=== PATIENT | female | born 1995 | race Hispanic/Latino ===

== ENCOUNTER 2022-04-08 14:17 | Outpatient (CLI) | payer BC | END 2022-04-08 14:18 | disposition home or self-care (01) | LOC: CSHULT 14:17 | PROVIDERS: ATTEND Family Medicine | DX: Z34.02 Encounter for supervision of normal first pregnancy, second trimester (principal); Z3A.28 28 weeks gestation of pregnancy | CPT/HCPCS: 76805 ==

== ENCOUNTER 2022-07-10 11:04 | Inpatient (IN) | payer BC ==
[2022-07-10] MEDS ORDERED: Iopamidol 300 61% 100 ML VIAL FS ONE (11:48)
[2022-07-10 12:14] LABS: #Basophils 0.1 10x3/uL (0.0-0.2); #Eosinphils 0.1 10x3/uL (0.0-0.5); #Monocytes 0.9 10x3/uL (0.0-1.1); #Neutrophils 8.9 10x3/uL (1.5-8.4); %Basophils 0.4 % (0.0-2.0); %Eosinophils 0.8 % (0.0-6.0); %Lymphocytes 16.5 % (18.0-47.0); %Monocytes 7.2 % (0.0-10.0); %Neutrophils 74.4 % (40.0-75.0); Hemoglobin 9.9 g/dL (12.0-15.5); Mean Corpuscular HGB CONC 31.2 g/dL (32.0-36.0); Mean Corpuscular Hemoglobin 27.3 pg (27.0-33.0); Mean Corpuscular Volume 87.3 fl (81.6-98.3); Mean Platelet Volume 9.8 fl (7.4-10.4); Platelet Count 758 10x3/uL (150-450); RBC Distribution Width 15.4 % (11.5-14.5); Red Blood Cell (RBC) Count 3.63 10x6/uL (3.90-5.03); White Blood Cell (WBC) Count 11.9 10x3/uL (3.5-10.5)
[2022-07-10 12:26] LABS: ALT (SGPT) 18 U/L (8-55); AST (SGOT) 19 U/L (5-34); Albumin 3.6 g/dL (3.5-5.0); Alkaline Phosphatase 137 U/L (40-110); Anion Gap 15 mmol/L (10-20); BUN (Urea Nitrogen) 10 mg/dL (7.0-18.7); Bilirubin, Total 0.2 mg/dL (0.2-1.2); Calc. Creatinine Clearance 0 mL/min (70-130); Carbon Dioxide 25 mmol/L (22-29); Chloride 103 mmol/L (98-107); Estimated GFR 123; Globulin 3.8 g/dL (2.4-3.5); Glucose 82 mg/dL (70-105); Potassium 4.2 mmol/L (3.5-5.1); Protein, Total 7.4 g/dL (6.0-8.3); Sodium 139 mmol/L (136-145)
[2022-07-10 12:35] LABS: Platelet Morphology Comment Appears Increased
[2022-07-10 12:36] LABS: Polychromasia SLIGHT = 2-3 cells (100X) (0-2/hpf)
[2022-07-10 13:23] LABS: Bilirubin Neg (Negative); Blood, Urine 50 (Negative); Clarity Clear (Clear); Glucose, Urine (Dipstick) Normal (Negative); Ketone, Urine Negative (Negative); Leukocyte 500 (Negative); Nitrite Negative (Negative); Protein, Urine (Dipstick) Negative (Neg-Trace); Specific Gravity, Urine 1.005 (1.005-1.030); Urobilinogen Normal mg/dL (Less than 2)
[2022-07-10 13:41] LABS: RBC/HPF 0-3 HPF (0-3); Squamous Epithelial 0-3 HPF (0-3)
[2022-07-10 13:43] LABS: Bacteria/HPF Rare-Few HPF (None Seen)
[2022-07-10] MEDS ORDERED: Gentamicin Sulfate 300 MG in Sodium Chloride 0.9% 100 ML IVPB SCH (14:30)
[2022-07-10] MEDS ORDERED: Clindamycin/D5W 900 MG in Premix Bag 1 BAG IVPB SCH (16:00)
[2022-07-10] MEDS ORDERED: VANCOMYCIN 1.75 GM/350 ML BAG 1.75 GM in Premix Bag 1 BAG IVPB SCH (16:30)
[2022-07-10 17:03] VITALS: BMI 25.9
[2022-07-10] MEDS ORDERED: Ondansetron PF 4 MG/2 ML Vial IVP PRN (19:08)
[2022-07-10] MEDS ORDERED: HYDROcodone/Acetaminophen 5/325 mg Tablet PO PRN ×2 (19:08→19:09)
[2022-07-10] MEDS: Ibuprofen 800 MG TAB PO PRN (20:31)
[2022-07-10] MEDS: metroNIDAZOLE 500 MG in Premix Bag 1 BAG IVPB SCH (20:32)
[2022-07-11 03:45] LABS: #Basophils 0.1 10x3/uL (0.0-0.2); #Eosinphils 0.2 10x3/uL (0.0-0.5); #Neutrophils 10.3 10x3/uL (1.5-8.4); %Basophils 0.5 % (0.0-2.0); %Eosinophils 1.3 % (0.0-6.0); %Lymphocytes 11.7 % (18.0-47.0); %Monocytes 7.7 % (0.0-10.0); %Neutrophils 78.1 % (40.0-75.0); Hemoglobin 9.2 g/dL (12.0-15.5); Mean Corpuscular HGB CONC 31.4 g/dL (32.0-36.0); Mean Corpuscular Hemoglobin 27.2 pg (27.0-33.0); Mean Corpuscular Volume 86.7 fl (81.6-98.3); Mean Platelet Volume 9.3 fl (7.4-10.4); Platelet Count 726 10x3/uL (150-450); RBC Distribution Width 15.5 % (11.5-14.5); Red Blood Cell (RBC) Count 3.38 10x6/uL (3.90-5.03); White Blood Cell (WBC) Count 13.2 10x3/uL (3.5-10.5)
[2022-07-11] MEDS: metroNIDAZOLE 500 MG in Premix Bag 1 BAG IVPB SCH ×3 (04:06→20:12)
[2022-07-11] MEDS: Vancomycin HCl 1 GM in Sodium Chloride 0.9% 250 ML 250 ML IVPB SCH ×3 (04:30→17:29)
[2022-07-11 04:47] LABS: Large Platelets SLIGHT; Platelet Morphology Comment Appears Increased
[2022-07-11] MEDS ORDERED: VANCOMYCIN 1.75 GM/350 ML BAG IVPB SCH (06:00)
[2022-07-11] MEDS: Gentamicin Sulfate 300 MG, Admixture Fee 1 EACH in Sodium Chloride 0.9% 100 ML IVPB SCH (16:26)
[2022-07-11 16:37] LABS: Vancomycin, Trough 11.9 ug/mL
[2022-07-12] MEDS: Vancomycin HCl 1 GM in Sodium Chloride 0.9% 250 ML 250 ML IVPB SCH ×3 (01:15→17:04)
[2022-07-12] MEDS: Ibuprofen 800 MG TAB PO PRN (01:22)
[2022-07-12] MEDS: metroNIDAZOLE 500 MG in Premix Bag 1 BAG IVPB SCH ×3 (03:38→23:09)
[2022-07-12] MEDS: Gentamicin Sulfate 300 MG, Admixture Fee 1 EACH in Sodium Chloride 0.9% 100 ML IVPB SCH (15:08)
[2022-07-12 16:38] LABS: Vancomycin, Trough 10.9 ug/mL
[2022-07-12] MEDS ORDERED: Vancomycin HCl 1.25 GM, Admixture Fee 1 EACH in Sodium Chloride 0.9% 250 ML 250 ML IVPB SCH (20:15)
[2022-07-13] MEDS: Vancomycin HCl 1.25 GM, Admixture Fee 1 EACH in Sodium Chloride 0.9% 250 ML 250 ML IVPB SCH ×3 (01:12→17:13)
[2022-07-13] MEDS: metroNIDAZOLE 500 MG in Premix Bag 1 BAG IVPB SCH ×3 (05:13→20:59)
[2022-07-13] MEDS: Gentamicin Sulfate 300 MG, Admixture Fee 1 EACH in Sodium Chloride 0.9% 100 ML IVPB SCH (15:13)
[2022-07-14 00:39] LABS: Vancomycin, Trough 18.2 ug/mL
[2022-07-14] MEDS: Vancomycin HCl 1.25 GM, Admixture Fee 1 EACH in Sodium Chloride 0.9% 250 ML 250 ML IVPB SCH ×2 (01:35→09:25)
[2022-07-14 03:53] LABS: #Basophils 0.1 10x3/uL (0.0-0.2); #Eosinphils 0.2 10x3/uL (0.0-0.5); #Monocytes 0.8 10x3/uL (0.0-1.1); #Neutrophils 4.9 10x3/uL (1.5-8.4); %Basophils 1.1 % (0.0-2.0); %Eosinophils 2.3 % (0.0-6.0); %Lymphocytes 23.6 % (18.0-47.0); %Neutrophils 62.2 % (40.0-75.0); Hemoglobin 9.1 g/dL (12.0-15.5); Mean Corpuscular HGB CONC 30.8 g/dL (32.0-36.0); Mean Corpuscular Hemoglobin 26.5 pg (27.0-33.0); Mean Platelet Volume 9.3 fl (7.4-10.4); Platelet Count 816 10x3/uL (150-450); RBC Distribution Width 15.6 % (11.5-14.5); Red Blood Cell (RBC) Count 3.43 10x6/uL (3.90-5.03); White Blood Cell (WBC) Count 7.9 10x3/uL (3.5-10.5)
[2022-07-14 04:21] LABS: Anisocytosis SLIGHT = 6-15 cells (100X) (0-5/hpf)
[2022-07-14 04:22] LABS: Platelet Morphology Comment Appears Increased
[2022-07-14] MEDS: metroNIDAZOLE 500 MG in Premix Bag 1 BAG IVPB SCH ×2 (04:44→12:10)
[2022-07-14] MEDS: Gentamicin Sulfate 300 MG, Admixture Fee 1 EACH in Sodium Chloride 0.9% 100 ML IVPB SCH (15:13)
[2022-07-14] MEDS: metroNIDAZOLE 500 MG TAB PO SCH (20:30)
[2022-07-14] MEDS: Amoxicillin/Potassium Clav 875 MG TAB PO SCH (20:30)
[2022-07-15] MEDS: metroNIDAZOLE 500 MG TAB PO SCH (03:59)
[2022-07-15 07:21] VITALS: BP 114/75; TEMP 98.4
[2022-07-15] MEDS ORDERED: VANCOMYCIN 1.25 GM/250 ML BAG 1.25 GM in Premix Bag 1 BAG IVPB SCH (09:00)
[2022-07-15] MEDS: Amoxicillin/Potassium Clav 875 MG TAB PO SCH (09:24)
== END 2022-07-15 11:30 | disposition home or self-care (01) | DRG 776 ==
LOC: CSHERS 11:04 → CSHPED 16:07 → OBSVTOIN 07-14 13:53
PROVIDERS: ADMIT Family Medicine; ATTEND Family Medicine
DX: O86.01 Infection of obstetric surgical wound, superficial incisional site (principal); Z79.899 Other long term (current) drug therapy; D64.9 Anemia, unspecified; O99.03 Anemia complicating the puerperium; D75.839 Thrombocytosis, unspecified
CPT/HCPCS: 36415; 74177; 80053; 80202; 81003; 81015; 82565; 83605; 85025; 87040; 94760; 96365; 96366; 96367; 96375; 96376; G0378; J1580; J3370; J3490; J7050; Q9967